=== PATIENT | female | born 1985 | race Caucasian/White ===

== ENCOUNTER 2018-01-05 15:06 | Emergency (ER) | payer MEDICAID ==
[~2018-01-05] VITALS: Ht 177.8 cm; Wt 76.8 kg
[2018-01-05] MEDS ORDERED: TETanus/Pertussis (Acell)/Diphther VAC/PF (Tdap-Adult) 0.5ml syringe IM ONE (15:55)
[2018-01-05] MEDS ORDERED: LIDOcaine 1.5% w/epinephrine 1:200,000 5ml ampul IJ ONE (15:55)
[2018-01-05] MEDS ORDERED: bacitracin 15gm ointment TP ONE (15:55)
[2018-01-05] MEDS ORDERED: ibuprofen tablet 400 MG TABLET PO ONE (16:00)
[2018-01-05] MEDS ORDERED: acetaminophen 325mg tablet PO ONE (16:00)
[2018-01-05] MEDS ORDERED: cephalexin 250mg capsule PO ONE (16:15)
[2018-01-05] MEDS ORDERED: CEPH250T PO (17:00)
[2018-01-05] MEDS ORDERED: HYDR-3965 PO (17:44)
[2018-01-05 17:56] VITALS: BP 107/68
== END 2018-01-05 17:59 | disposition home or self-care (01) ==
LOC: ER 15:07
DX: S61.216A Laceration without foreign body of right little finger without damage to nail, initial encounter (principal); W23.0XXA Caught, crushed, jammed, or pinched between moving objects, initial encounter; Y93.89 Activity, other specified; Y92.89 Other specified places as the place of occurrence of the external cause; Y99.8 Other external cause status
CPT/HCPCS: 12001; 73140; 90471; 90715; 99284; A6255; A6449; J3490

== ENCOUNTER 2018-02-03 09:25 | Outpatient (CLI) | payer MEDICAID ==
[~2018-02-03 09:25] MED LIST: HYDR-3965 PO
[2018-02-03 09:34] VITALS: BP 126/76
== END 2018-02-03 10:07 | disposition home or self-care (01) ==
LOC: ORTHO 09:25
PROVIDERS: ATTEND Nurse Practitioner Family
DX: S68.626A Partial traumatic transphalangeal amputation of right little finger, initial encounter (principal); F17.200 Nicotine dependence, unspecified, uncomplicated; X58.XXXA Exposure to other specified factors, initial encounter; Y93.89 Activity, other specified; Y92.89 Other specified places as the place of occurrence of the external cause; Y99.8 Other external cause status
CPT/HCPCS: 73140; 99213